=== PATIENT | female | born 1995 | race Caucasian/White ===

== ENCOUNTER 2024-04-28 20:48 | Emergency (ER) | payer OTHER, SELFPAY ==
[2024-04-28 20:59] VITALS: BP 138/85; PULSE 84; RESP 18; TEMP 36.9; O2SAT 98; BMI 20.8
--- NOTE | 2024-04-28 21:17 | MHC.EDTECH ---
Patient brought into triage area,Sars/Flu/Rsv and Strep swabs obtained and sent to lab.
[2024-04-28 21:33] LABS: IDNOW Serial# 6674DD1D; Strep A Nucleic Acid Positive (Negative)
[2024-04-28 22:02] LABS: Influenza A PCR NEGATIVE (Negative); Influenza B PCR NEGATIVE (Negative); Resp Syncy Virus RNA Qual PCR NEGATIVE (Negative); SARS COV2 PCR INHOUSE NEGATIVE (Negative)
--- NOTE | 2024-04-28 22:14 | ED_ITS ---
HPI - General Adult General Chief complaint: Upper Respiratory Symptoms Stated complaint: ?Strep Time Seen by Provider: 04/28/24 22:13 Source: patient Mode of arrival: ambulatory Limitations: no limitations History of Present Illness ED Provider: Felice LAZARO HPI narrative: This is a 28-year-old female presenting with sore throat for the past few days, reports sore throat is worse with swallowing and eating. She reports the pain seems to be worsening. She also reports fatigue, malaise, myalgias. She denies sick contacts. Denies fevers, chills, headache, vision changes, dizziness, weakness, nausea, vomiting, abdominal pain, chest pain, shortness of breath. Related Data Previous Rx's ?Medication ?Instructions ?Recorded amoxicillin 875 mg-potassium 1 tab PO BID 10 days #20 tabs 04/28/24 clavulanate 125 mg tablet prednisone 20 mg tablet 40 mg (2 x 20 mg) PO DAILY 5 days 04/28/24 #10 tabs Allergies Allergy/AdvReac Type Severity Reaction Status Date / Time latex AdvReac Rash Verified 04/28/24 21:00 Review of Systems Review of Systems: Yes all other systems are reviewed and are negative [facility] Past Medical History Attestation statement: The following information was validated with the patient. Source: old records reviewed and nursing notes reviewed Social History Social History Advance Directives: No Advance Directives Information Provided: No Physical Exam ED Vital Signs: Vital Signs - 24 hr 04/28/24 20:59 Temperature 98.4 F Pulse Rate 84 Respiratory Rate 18 Blood Pressure 138/85 Pulse Oximetry 98 Oxygen Delivery Method Room Air BMI result Body Mass Index 20.8 vss Appearance: Alert.? Oriented X3.? No acute distress.? Head: Normocephalic, atraumatic, no step-offs or deformities Eyes: Pupils equal, round and reactive to light.? ENT: bilateral tonsillar hypertrophy right greater than left with exudates again right greater than left. Uvula midline. Speaking in full sentences controlling secretions well. Neck: Normal inspection.? Neck supple.? CVS: Normal heart rate and rhythm.? Pulses normal.? Respiratory: No respiratory distress.? Breath sounds normal.? Abdomen: Soft and nontender.? Skin: Skin warm and dry.? Normal skin color.? Normal skin turgor.? Extremities: No lower extremity edema.? No calf ttp. 5/5 strength to bilateral upper and lower extremities Back: No midline tenderness, no C-spine tenderness, full range of motion, no CVA tenderness bilaterally Neuro: Oriented X 3.? No motor deficit.? No sensory deficit. CN 2-12 intact Course Reevaluation(s) Reevaluation #1: Strep positive patient to be discharged on Augmentin and prednisone Educated patient on diagnosis and treatment plan, answered all question, patient verbalizes understanding. At this time patient will be discharged home, advised to return with new or worsening symptoms. Educated on worrisome signs and symptoms and when to return. At this time I feel comfortable discharge home. Time: 22:17 Medical Decision Making Medical Decision Making [facility] Narrative: 1014 This is a 28 year old female presenting with sore throat for the past few days. On exam bilateral tonsillar hypertrophy right greater than left with exudates again right greater than left. Uvula midline. Speaking in full sentences controlling secretions well. History and physical exam concerning for strep throat versus viral illness versus mononucleosis. Unlikely retropharyngeal abscess peritonsillar abscess, epiglottitis, acute threat to airway. No signs of hypoxia Plan strep test. Differential Diagnosis Differential Diagnoses: The differential diagnosis associated with the presentation includes History and physical exam concerning for strep throat versus viral illness versus mononucleosis. Unlikely retropharyngeal abscess peritonsillar abscess, epiglottitis, acute threat to airway. No signs of hypoxia Admission/Observation Consideration of admission/observation: Escalation of care including admission/observation considered Unlikely Lab Data [facility] Lab Attestation statement: I reviewed the patient's lab results. Labs: Lab Results 04/28/24 Range/Units 21:16 S. pyogenes GrpA WAYLON Positive A (Negative) Prescription Management I considered prescription management with: Antibiotic Critical Care Time Critical Care Time Critical Care Time: No Discharge Plan Discharge Clinical Impression: Pharyngitis Patient Disposition: Home, Self-Care Instructions: Pharyngitis (ED) Additional Instructions: Take your medications as prescribed. If you were prescribed antibiotics today, it is important that you take your medication to their entirety, do not skip any doses, do not finish them early. Follow-up with your primary care provider this week. Return to the emergency department with new or worsening symptoms. Such as fevers, chills, chest pain, shortness of breath, nausea, vomiting, dizziness, headache, vision changes, lethargy In case of emergency call 911 Saltwater gargles are encouraged 2 to 3 times a day. Prescriptions: New prednisone 20 mg tablet 40 mg PO DAILY 5 Days Qty: 10 0RF amoxicillin-pot clavulanate 875-125 mg tablet 1 tab PO BID 10 Days Qty: 20 0RF Referrals: Physician,Unknown J [Primary Care Provider] - 2 days Print Language: Italian
[2024-04-28 22:23] VITALS: BP 138/85; PULSE 84; RESP 18; TEMP 36.9; O2SAT 98
== END 2024-04-28 22:26 | disposition home or self-care (01) ==
PROVIDERS: Emergency Provider Emergency Medicine
DX: J02.9 Acute pharyngitis, unspecified (principal); Z03.818 Encounter for observation for suspected exposure to other biological agents ruled out
CPT/HCPCS: 0241U; 87651; 99283; 99284

== ENCOUNTER 2025-06-03 15:30 | Emergency (ER) | payer OTHER, SELFPAY ==
--- OUTSIDE RECORDS SUMMARY | 2018-07-08 13:00 | XMS_ITS | Continuity of Care Document ---
Author Organization [address] [place] [address] Phone Care Team Providers Care Diving Judge Name Role Phone Radha Sanchez Unavailable Unavailable Procedures Procedure Date BLOCK Advance Directives Directive Yes / No Effective Date File Name No Information Encounters Encounter Description Practice Location Reason(s) For Visit Diagnoses Date Provider Providers Copied on Encounter [address] [place], [id number], tel:[phone] [facility] No Information [address] Bobby Garcia. [address] [facility] [place], [address], [place]. tel:[phone] Referring Provider: Radha Rosales, [address] [place] [address] [place], [facility]. tel:[phone] Family History Family Member Type Diagnosis Age At Onset No Information Payers Payer name Insurance type Covered green party ID Authoriza tion(s) No Information Social History Type Description Quantity Date Captured Comments Sex Female Smoking Status No Information Chief Complaint And Reason For Visit No Information Reason For Referral Reason For Referral No Information History Of Present Illness Encounter Date Complaint History Of Prese nt Illness No Information Functional Status Date Functional Assessmen t No Information Instructions Date Instruction Additional Infor mation No Information Assessments Type Assessment Date No Information Patient Care Teams Name Effective Dates (start - stop) Status Members No Information
[2025-06-03 15:42] VITALS: BP 146/64; PULSE 60; RESP 20; TEMP 36.8; O2SAT 98; BMI 25.6
--- NOTE | 2025-06-03 15:43 | ED_ITS ---
HPI - General Adult General Chief complaint: Upper Respiratory Symptoms Stated complaint: body aches, neck gland swollen Time Seen by Provider: 06/03/25 16:02 Source: patient Mode of arrival: ambulatory Limitations: no limitations History of Present Illness ED Provider: Gabriella Raphael PA-C HPI narrative: Patient is a 29 year old assigned female at with a history of chronically swollen cervical lymph nodes presenting to the emergency department today with feeling generally unwell, headache, worsening left sided cervical lymph node swelling effecting her swallowing, and increased bruising with fatigue. Patient states that over the last 4 days she has had a headache, worsening left sided swelling of the cervical lymph nodes, body aches, fatigue, and increased bruising. Patient denies any other complaints at this time. Related Data Previous Rx's ?Medication ?Instructions ?Recorded amoxicillin 875 mg-potassium 1 tab PO BID 10 days #20 tabs 04/28/24 clavulanate 125 mg tablet prednisone 20 mg tablet 40 mg (2 x 20 mg) PO DAILY 5 days 04/28/24 #10 tabs amoxicillin 875 mg tablet 875 mg PO BID 10 days #20 ta bs 06/03/25 Allergies Allergy/AdvReac Type Severity Reaction Status Date / Time latex AdvReac Rash Verified 06/03/25 15:45 Review of Systems 2 Constitutional: Constitutional: Reports as per HPI Eyes: Eyes: Reports as per HPI ENT: Reports as per HPI Cardiovascular: Cardiovascular: Reports as per HPI Respiratory: Respiratory: Reports as per HPI Gastrointestinal: Gastrointestinal: Reports as per HPI Genitourinary: Genitourinary: Reports as per HPI Musculoskeletal: Musculoskeletal: Reports as per HPI Integumentary/Breasts: Skin/Breast: Reports as per HPI Neurologic: Reports as per HPI Psychiatric: Psychiatric: Reports as per HPI Endocrine: Endocrine: Reports as per HPI Hematologic/Lymphatic: Hematologic/Lymphatic: Reports as per HPI Allergic/Immunologic: Allergic/Immunologic: Reports as per HPI [facility] Past Medical History Attestation statement: The following information was validated with the patient. Source: old records reviewed and nursing notes reviewed Social History Social History Smoked in Last 30 Days: No Use of substances other than those prescribed or required for medical reasons: No Advance Directives: No Advance Directives Information Provided: Yes Physical Exam ED Vital Signs: Vital Signs - 24 hr 06/03/25 15:42 Temperature 98.2 F Pulse Rate 60 Respiratory Rate 20 Blood Pressure 146/64 H Pulse Oximetry 98 Oxygen Delivery Method Room Air BMI result Body Mass Index 25.6 Const General: cooperative, no acute distress, alert and awake Nutritional Appearance: well nourished Orientation/consciousness: patient oriented x3 HENMT Head: Yes normal to inspection and Yes atraumatic Ears: hearing grossly normal bilaterally and external ears normal General nose exam: Normal external nose present, no nasal discharge noted and no epistaxis Face and sinus: Yes normal facial exam, No abrasion and No laceration Mouth: Normal oral and palatal mucosa present, no drooling and no muffled voice Throat: Yes abnormal tonsil (bilateral erythema and exudates) Eyes General: appearance normal, both eyes and all related structures Periorbital: periorbital findings normal Eyelids: Yes eyelids normal Conjunctivae: conjunctivae normal Pupils: Equal, round and reactive pupils present EOM: EOMs intact bilaterally Neck Other: bilateral anterior cervical lymphadenopathy - left worse than right Neck: Yes normal visual inspection and Yes full ROM Resp Effort & Inspection: normal respiratory effort and able to speak in complete sentences Neuro General: patient oriented x3, moves all extremities and CN's II-XI intact bilaterally Cranial nerves: Yes Equal, round and reactive pupils present Cognition (Neuro): normal cognition Extrem General: Yes normal to inspection, Yes full ROM and Yes capillary refill normal Psych Appearance: grossly normal Mental Status: mental status grossly normal Affect: normal affect Attitude: cooperative Thought process: Normal thought process present Thought content: Normal thought content present Insight: Good insight present (Psych) Course Course Course Narrative: This is a rapid medical exam performed by Yaz Fink NP: Additional HPI, ROS, PE not included below will be deferred to primary provider. Patient is a 29-year-old female presenting to the ED with complaint of headache for the past 4 days, swelling to left side of neck, body aches. Reports difficulty swallowing due to swelling, managing secretions without difficulty in triage. Plan: strep and viral swabs Medical Decision Making Medical Decision Making MDM Narrative: Patient is a 29 year old assigned female at with a history of chronically swollen cervical lymph nodes presenting to the emergency department today with feeling generally unwell, headache, worsening left sided cervical lymph node swelling effecting her swallowing, and increased bruising with fatigue. Patient's physical exam was as noted in the physical exam portion of this note. Patient's blood work was unremarkable. Patient's strep test was positive. I explained my physical exam findings as well as all test results to the patient. I answered all questions asked by the patient. I stressed the importance of the patient taking her medication as directed (either prescribed or as the over the counter packaging recommends). I stressed the importance of the patient following up with her primary care provider. I stressed the importance of the patient returning to the emergency department immediately if her symptoms were to worsen or if she were to develop any dizziness, shortness of breath, difficulty breathing, chest pain, blurry vision, loss of vision, nausea, vomiting, abdominal pain, fever, chills, back pain, or any other complaints. Patient verbalized agreement and understanding with this treatment plan and discharge. Differential Diagnosis Differential Diagnoses: The differential diagnosis associated with the presentation includes Strep pharyngitis Arthur Influenza Anemia Fatigue Admission/Observation Consideration of admission/observation: Escalation of care including admission/observation considered Patient would have been admitted to the hospital had her work up had any findings where hospital admission was appropriate and her clinical presentation warranted hospital admission. Lab Data [facility] Lab Attestation statement: I reviewed the patient's lab results. My interpretation of these results are in the [facility] Rationale portion of this note. 06/03/25 17:10 06/03/25 17:10 Labs: Lab Results 06/03/25 06/03/25 06/03/25 Range/Units 15:56 15:57 17:10 WBC 9.8 (4.8-10.8) X10*3/uL RBC 3.99 L (4.20-5.50) X10*6/uL Hgb 12.0 (12.0-16.0) g/dl Hct 35.4 L (37.0-47.0) % MCV 88.7 (80.0-98.0) fL MCH 30.1 (27.0-33.0) pg MCHC 33.9 (31.0-35.0) g/dl RDW 12.6 (11.0-16.0) % Plt Count 254 (160-400) X10*3/uL MPV 10.7 (9.4-12.3) fL Immature Gran % (Auto) 0.3 (0.0-0.4) % Neut % (Auto) 74.7 H (45-73) % Lymph % (Auto) 17.0 L (20-40) % Arthur % (Auto) 6.8 (2-11) % Eos % (Auto) 0.6 (0-4) % Baso % (Auto) 0.6 (0-2) % Lymph # (Auto) 1.7 (1.2-4.9) X10*3/uL Arthur # (Auto) 0.7 (0.1-1.2) X10*3/uL Eos # (Auto) 0.1 (0.0-0.4) X10*3/uL Baso # (Auto) 0.1 (0.0-0.2) X10*3/uL Abs Immat Gran (auto) 0.03 (0.00-0.03) X10*3/uL Absolute Neuts (auto) 7.3 (2.0-8.3) x10*3/uL Absolute Nucleated RBC 0.000 (0.0-0.012) X10*3/uL Nucleated RBC % (auto) 0.0 (0.0-0.2) /100WBC Sodium 139 (135-145) mmol/L Potassium 3.8 (3.3-5.1) mmol/L Chloride 106 (96-108) mmol/L Carbon Dioxide 26 (22-29) mmol/L Anion Gap 11 L (12-20) BUN 10 (9-16) mg/dL Creatinine 0.76 (0.5-1.4) mg/dL Estim Creat Clear Calc 108.9 Estimated GFR > 60 Random Glucose 81 (60-115) mg/dL Calcium 9.2 (8.4-10.2) mg/dL Total Bilirubin 0.5 (0.0-1.0) mg/dL AST 22 (5-31) U/L ALT 13 (0-31) U/L Alkaline Phosphatase 42 (39-117) U/L C-Reactive Protein 0.17 (< or = 0.50) mg/dL Total Protein 6.9 (6.5-8.0) g/dL Albumin 4.3 (3.5-5.0) g/dL Beta HCG, Quant < 2 mIU/mL COVID-19 (SARAHY) Negative (Negative) COVID-19 Clin Com See Note Monoscreen Negative (Negative) Influenza Type A (WAYLON) Negative (Negative) Influenza Type B (WAYLON) Negative (Negative) Influenza A & B Note See Note S. pyogenes GrpA WAYLON Positive A (Negative) Prescription Management I considered prescription management with: Antibiotic (patient prescribed an antibiotic for strep pharyngitis) Discharge Plan Discharge Clinical Impression: Strep pharyngitis Patient Disposition: Home, Self-Care Instructions: Strep Throat (DC) Additional Instructions: Your strep test was positive. The rest of your labs are unremarkable. Throw away your toothbrush to avoid re-infecting yourself. IF you are prescribed home medications and/or you are taking over the counter medications at home - it is very important you continue to do so as prescribed / directed unless told otherwise. Follow up with your primary care provider. Return to the emergency department immediately if your symptoms worsen or if you develop any numbness, tingling, dizziness, shortness of breath, difficulty breathing, chest pain, blurry vision, loss of vision, nausea, vomiting, abdominal pain, fever, chills, back pain, or any other complaints. Please see the information below about our Patient Portal. If you are not yet enrolled in the [facility] Patient Portal, you will receive an enrollment email invitation following your visit to any [facility] setting. You may also self-enroll in the Patient Portal by visiting our website: [email or web address] The following information is required to access the Patient Portal: - Your [facility] Medical Record Number - Your personal home email address (must match what is in your electronic medical record, Registration staff can assist with this) - Name - Date of Capabilities of the Patient Portal: - Message some providers - View upcoming appointments - Access your health summary, medical history, and visit history - View current conditions and allergies - View procedure and lab results - View your medications, including guidelines, side effects, and precautions - Complete pre-appointment questionnaires requested by your provider - Ready summary reports of your office visits and procedures To access the Patient Portal Mobile [employer], follow these directions: - Search [employer] in the [employer]nell Store or [employer] Store - Download the Ronnell - Search for [facility] - Enter your login/password Prescriptions: New amoxicillin 875 mg tablet 875 mg PO BID 10 Days Qty: 20 0RF No Action prednisone 20 mg tablet 40 mg PO DAILY 5 Days Qty: 10 0RF amoxicillin-pot clavulanate 875-125 mg tablet 1 tab PO BID 10 Days Qty: 20 0RF Referrals: Group,[facility] [Primary Care Provider, Primary Care] Stand Alone Forms: Work/School Release Print Language: [place]
[2025-06-03 16:16] LABS: COVID-19 Test Negative (Negative); IDNOW Serial# 08D9AD1C
[2025-06-03 16:18] LABS: IDNOW Serial# 58CA691E; Strep A Nucleic Acid Positive (Negative)
[2025-06-03 16:21] LABS: IDNOW Serial# 6674DD1D; Influenza B2 Negative (Negative)
--- OUTSIDE RECORDS SUMMARY | 2025-06-03 16:43 | XMS_ITS | Clinical Summary ---
Author Organization [facility] Address [address] [place] [address] Phone Care Team Providers Care Machine Tool Technician Instructor Name Role Phone Miranda Heller MD Primary Care Provider [phone] Allergies Active Allergy Reactions Criticality Noted Date Comments Animal Dander 01/18/2022 Other reaction(s): Runny Nose/Rhinitis Congestions. Latex 12/22/2007 Contact reaction causes hives Tetrahydrozoline-Zinc 08/25/2024 Runny Nose/Rhinitis Other Runny nose 01/18/2022 Cats Congestions. Medications norelgestromin-e thinyl estradiol (ORTHO EVRA) 150-35 mcg/[address] 1 patch on the skin 1 (one) time per week. Apply 1 patch each week for 3 weeks, then remove for 1 week. 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 She agreed. Rx sent. Allergic contact dermatitis due to other agents 09/16/2019 Anxiety and depression 08/14/2016 Overview (08/25/2024): Reports anxiety at IP, denies depression- N referral list given. Declines meds at this time. Feels stable Denies SI/HI 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/11/2012 Overview (08/25/2024): Followed by usn Eczema 11/11/2012 Acne 08/08/2007 Resolved Problems Problem Noted Date Diagnosed Date Resolved Date UTI symptoms 07/18/2022 10/23/2024 Overview (08/25/2024): 07/17/22 Reports crampy LBP at 36 weeks, u/a at [facility] +blood and leuk est, urine culture pending, rx for Keflex 500mg 4x daily x 7 days sent to pharmacy 07/19/22 Urine culture neg - will advise to stop abx macrosomia during 07/17/2022 10/23/2024 Overview (08/25/2024): EFW 94% at 32+6 08/07: 4088gm 93rd percentile Low back pain during pregnan cy in third trimester 07/13/2022 10/23/2024 Overview (08/25/2024): Last Assessment & Plan: Reassured this sounds like usual discomfort of and she can try stretching, gentle heat. headache in third trimester 07/13/2022 10/23/2024 Overview (08/25/2024): Last Assessment & Plan: I counseled An that her JOE may be tension or migrine related. No evidence of pre-eclampsia. She was encouraged to use Phenergan and nap this afternoon. If JOE not resolved, to call and be seen on [facility] this evening. She agreed. Round ligament pain 07/13/2022 10/23/19 Overview (08/25/2024): Last Assessment & Plan: Explained this sounds like round ligament pain and is not worrisome, but may occur from time to time. As long as it does not persist, no need for further evaluation. Encounters Date Type Department Care Team Description 06/03/2025 Telephone Adult Medicine [place] - [place] [address] [place] [phone] Miranda Heller MD 05/13/2025 10:00 AM EDT Office Visit Obstetrics and Gynecology - [place] [id number] [place] [phone] Arlyn Alfaro CNM Encounter for surveillance of transdermal patch hormonal contraceptive device (Primary Dx); control counseling from Last 3 Months Immunizations Name Administration Dates Next Due DTP 06/14/1995, 4,03/14/1994,01/12 DTaP (Infanrix) 6wks to less than 7yo 12/07/1997 CPeX-NJB-HFL (Pentacel) 2mo to less than 5yo 06/14/1995,05/14/1994,03/14/1994,01/12 HPV, Quadrivalent 03/12/2008,10/16/2007,08/08/20 07 Hepatitis B Pediatric (Enger ix B; Recombivax HB) to less than 20 yo 08/14/1994,01/12/1994,1993 IPV Inactivated polio (Ipol) 6wks and older 12/07/1997 Influenza Quadravalent, MDCK , 0.5ml, preservative free (Flucelvax) 6mo and older 06/20/2022 Influenza Quadravalent, MDCK , 0.5ml, with preservative (Flucelvax) 6mo and older 12/22/2023 Influenza trivalent, 0.5mL, preservative free (Fluarix; FluLaval; Fluzone) ages 6mo and older (Afluria) 3 years and older 07/02/2019,06/10/2009 MMR, measles mumps and rubel la Live (Priorix; M-M-R II) 12mo and older 12/22/1998,03/14/1995 MMRV, measles mumps rubella and varicella live (Proquad) 4yo to less than 7yo 12/22/1998,03/14/1995 Meningococcal MCV4P 03/12/2008 OPV 06/14/1995, 4,03/14/1994,01/12 PPD Test 02/14/2001,12/12/1994 Pfizer SARS-CoV-2 COVID-19, mRNA, LNP-S, preservative free 07/05/2021,01/03/2021,12/13/2020 Tdap Tetanus diptheria acell ular pertussis (Boostrix; Adacel) 7yo and older 05/23/2022,03/19/2018,08/08/2007 Varicella live (Varivax) 12m o and older 05/04/2009,03/14/1999 Surgical History Surgery Date Site/Laterality Comments TYMPANOSTOMY TUBE PLACEMENT , PROCEDURE: HISTORICAL PE TUBES OTHER SURGICAL HISTORY 02/2007 PROCEDURE: AR PRQ SKEL FIXJ PHLNGL SHFT FX PROX/MIDDLE PX/F/T; COMMENT: two pins placed right pinky finger OTHER SURGICAL HISTORY 07/08/2015 Left PROCEDURE: HISTORY OTHER; COMMENT: removal of breast fibroadenoma WISDOM TOOTH EXTRACTION 2010 PROCEDURE: HISTORICAL WISDOM TEETH EXTRACTION; COMMENT: All 4 removed OTHER SURGICAL HISTORY 2017 PROCEDURE: HISTORICAL D&C SECTION 08/11/2022 PROCEDURE: HISTORICAL DELIVERY Medical History Medical History Date Comments Urinary tract infection, sit e not specified ,,,, DX:Urinary tract infection, site not specified Acute suppurative otitis med ia without spontaneous rupture of eardrum x2,,x2,,,,,, DX:Acute suppurative otitis media without spontaneous rupture of eardrum Expressive language disorder 05/1995 DX: Expressive language disorder Dog bite(E906.0) 04/1996 DX:Dog bite(E90 6.0); COMMENT: face Fracture of finger DX:Fracture o f finger; COMMENT: multiple fractures and surgery Seborrheic dermatitis 02/2009 DX:Seborrh eic dermatitis; COMMENT: seen by Peter vaca, resolved 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/11/2012 DX:Fibroadenoma Eczema 11/11/2012 DX:Eczema HSV-1 infection DX:HSV-1 infecti on 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; COMMENT: flaky patches on eyelids Heart murmur DX:Heart murmur; COMMENT: Born with this; unsure if still present 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; COMMENT: 12/12/15 S/P D&C Family History Medical History Relation Name Comments Other: tested postiive for BRCA Father does not know Breast cancer Half-Sister paternal 1/2 sister triple negative Other: tested positive for BRACA gene Half-Sister paternal 1/2 sister 1/2 sister diagnosed with stage 2 breast CA, had chemo Diabetes Maternal Grandmother Hypertension Maternal Grandmother Nephrolithiasis Mother Other: coconut allergy Mother Other: mitral valve prolapse Mother Breast cancer Other maternal great aunt Asthma Paternal Grandmother breast cancer Cervical cancer Neg Hx Colon cancer Neg Hx Ovarian cancer Neg Hx Prostate cancer Neg Hx Uterine cancer Neg Hx Relation Name Status Comments Father does not know Alive 05/18/1969 Half-Sister paternal 1/2 sister Alive Maternal Grandfather Maternal Grandmother Alive Mother Alive 10/11/1974 Other maternal great aunt Alive Paternal Grandfather Paternal Grandmother Social History Tobacco Use Types Packs/Day Years Used Date Smoking Tobacco: Former Cigarettes Q uit: 09/30/2020 Smokeless Tobacco: Never Alcohol Use Standard Drinks/Week Comments Yes 0 (1 standard drink = 0.6 oz pur e alcohol) Comments No Sex and Gender Information Value Date Recorded Sex Assigned at Not on file Legal Sex Female 3:20 AM EST Gender Identity Not on file Sexual Orientation Not on file Occupation Industry Job Start Date Job End Date [employer]ER Not on file Not on file Not on file Obstetrics History * This document contains information received from the source organization and may not represent a complete record from that organization. Para Term AB IAB SAB Ectopic Multiple Livin g Live Births 2 1 1 1 1 Date Outcome GA Total Labor Labor/2nd/3rd Weight Sex Type Anes PTL Yaritza A1 A5 Name Clin 2015 2021 Term 39w 5d 4082 g (144 oz) M CS-LT ranv Spinal N Livin g Dr. Crocker Delivery Location:[facility] Comments:Arrest of dil ation. 8/9 Last Filed Vital Signs Vital Sign Reading Time Taken Comments Blood Pressure 106/84 05/13/2025 9:59 AM EDT Pulse 58 05/13/2025 9:59 AM EDT Temperature - - Respiratory Rate 14 05/13/2025 9:59 AM EDT Oxygen Saturation - - Inhaled Oxygen Concentration - - Weight 72.3 kg (159 lb 6.4 oz) 05/13/2025 9:59 A M EDT Height 165.1 cm (5' 5 ) 02/12/2025 11:24 AM EDT Body Mass Index 26.53 02/12/2025 11:24 AM EDT Plan of Treatment Upcoming Encounters Date Type Department Care Team (Late st Contact Info) Description 06/17/2025 10:30 AM EDT Procedure visit Obstetrics and Gynecology - [address] [phone] Arlyn Alfaro CNM [address] [place] [address] 06/24/2025 9:30 AM EDT Office Visit Adult Medicine [place] - [address] [phone] Miranda Heller MD [address] [place] [address] Health Maintenance Due Date Last Done Comments Pneumococcal Vaccine: Pediatrics (0 to 5 Years) and At-Risk Patients (6 to 49 Years) (1 of 2 - PCV) 2012 Social Influencers of Health Screening 09/02/2022 Depression Screening 09/30/2024 02/14/2024 COVID-19 Vaccine ( season) 2025 07/05/2021, 01/03/2021, 12/13/2020 Influenza Vaccine (#1) 2025 , 06/20/2022, 07/02/2019, Additional history exists Cervical Cancer Screening: HPV 02/01/2027 02/01/2022 Cholesterol Screening (Lipid Panel) 08/30/2028 08/30/2023, 08/30/2023 DTaP,Tdap,and Td Vaccines (9 - Td or Tdap) 05/23/2032 05/23/2022, 03/19/2018, 08/08/2007, Additional history exists Hepatitis B Vaccines Completed 08/14/1994, 01/12/1994, 1993 HIB Vaccines Completed 06/14/1995, 04/30, 03/14/1994, Additional history exists IPV Vaccines Completed 12/07/1997, 05/31, 06/14/1995, Additional history exists MMR Vaccines Completed 12/22/1998, 11/29, 03/14/1995, Additional history exists HPV Vaccines Completed 03/12/2008, 09/30, 08/08/2007 Meningococcal ACWY Vaccine Aged Out 03/12/2008 N o longer eligible based on patient's age to complete this topic Varicella Vaccines Completed 05/04/2009, 0 03/14/1999, 12/22/1998, Additional history exists HIV Screening Completed 01/23/2022 Hepatitis C Screening Completed 01/23/2022 Hepatitis A Vaccines Aged Out No long er eligible based on patient's age to complete this topic Meningococcal B Vaccine Aged Out No l onger eligible based on patient's age to complete this topic RSV Immunization Patients Under 20 months Aged Out No longer eligible based on patient's age to complete this topic Procedures Procedure Name Priority Date/Time Associated Diagnosis Comments DEPRESSION SCREENING Routine 02/14/2024 LIPID PANEL Routine 08/30/2023 HPV Routine 02/01/2022 HEPATITIS C SCREENING Routine 01/23/2022 HIV SCREENING Routine 01/23/2022 from Last 3 Months or Most Recently Relevant to Health Maintenance Results * Depression Screening (02/14/2024) Depression Screening abstracted us Historical Provider HEALTH MAINTENANCE Final Result * Lipid panel (08/30/2023) Triglycerides 0 mg/dL Comment:no interpretation Cholesterol 0 mg/dL Comment:no interpretation HDL 0 mg/dL Comment:no interpretation LDL Cholesterol 0 mg/dL Comment:no interpretation Blood Venous blood specimen / Unknown Result [facility] Provider LAB BLOOD ORDERABLES Val l Result * Cervical Cancer Screening: HPV (02/01/2022) Pathologist [facility] Cervical Cancer Screening: HPV abstracted, no interpretation Result [facility] Provider HEALTH MAINTENANCE Final Result * HIV Screening (01/23/2022) [facility] HIV Screening abstracted [facility] Provider HEALTH MAINTENANCE Final Result * Hepatitis C Screening (01/23/2022) [facility] Hepatitis C Screening abstracted [facility] Provider HEALTH MAINTENANCE Final Result from Last 3 Months or Most Recently Relevant to Health Maintenance Insurance [facility] Care Teams Machine Tool Technician Instructor Relationship Specialty Start Date End Date Miranda Heller MD [address] [place] [address] PCP - General 02/20/24
--- OUTSIDE RECORDS SUMMARY | 2025-06-03 16:43 | XMS_ITS | Clinical Summary ---
Author Organization [facility] Address [address] [place] [address] Care Team Providers Care Pearl Hand Name Role Phone Vika Monge APRN Primary Care Provider Ailin vailable Allergies Active Allergy Reactions Criticality Noted Date Comments Animal Dander 01/18/2022 Other reaction(s): Runny Nose/Rhinitis Congestions. Latex 12/22/2007 Contact reaction causes hives Tetrahydrozoline-Zn Sulfate Rash,Other (See Comments) Low 01/18/2022 Sneezing, and runny nose Medications No known medications Active Problems Problem Noted Date Diagnosed Date Dermatitis 08/30/2023 EMELIA (generalized anxiety disorder) 08/30/2023 Episode of recurrent major depressive disorder 1 10/31/2022 Family History Medical History Relation Name Comments No Sig Med Hx Father No Sig Med Hx Mother No Sig Med Hx Son Relation Name Status Comments Father Alive Mother Alive Son Alive Social History Tobacco Use Types Packs/Day Years Used Date Smoking Tobacco: Former Cigarettes 0.3 2 0 09/30/2011 - 09/30/2013 Smokeless Tobacco: Never Tobacco Cessation:Counseling Given: Not Answered Alcohol Use Standard Drinks/Week Comments Not Currently 0 (1 standard drink = 0.6 oz pure alcohol) Special occasions; 2 drinks in a sitting Sex and Gender Information Value Date Recorded Sex Assigned at Female 08/27/2023 4:16 PM EST Gender Identity Not on file Sexual Orientation Not on file Job Start Date Occupation Industry Not on file Not on file Not on file Last Filed Vital Signs Vital Sign Reading Time Taken Comments Blood Pressure 127/79 08/30/2023 9:07 AM EST [facility] Pulse 75 08/30/2023 9:07 AM EST Temperature 36.6 C (97.8 F) 08/30/2023 9:07 AM EST Respiratory Rate 16 08/30/2023 9:07 AM EST Oxygen Saturation 98% 08/30/2023 9:07 AM EST Inhaled Oxygen Concentration - - Weight 81.2 kg (179 lb) 08/30/2023 9:07 AM EST Height 167 cm (5' 5.75 ) 08/30/2023 9:07 AM EST Body Mass Index 29.11 08/30/2023 9:07 AM EST Plan of Treatment Health Maintenance Due Date Last Done Comments Hepatitis C Screening 1993 Depression Screening 2005 BMI Counseling 2011 Preventative Health Evaluation 2011 Cervical Cancer Screening (Pap Smear) 2014 COVID-19 Vaccine ( season) 2025 07/05/2021, 01/03/2021, 12/13/2020 Influenza Vaccine (#1) 2025 , 07/02/2019, 06/10/2009 DTap / Tdap / Td (9 - Td or Tdap) 05/23/2032 05/23/2022, 03/19/2018, 08/08/2007, Additional history exists Hepatitis B Vaccines Completed 08/14/1994, 01/12/1994, 1993 Pneumococcal Vaccine Aged Out No long er eligible based on patient's age to complete this topic RSV Ped < 20 months Aged Out No longe r eligible based on patient's age to complete this topic Care Teams Pearl Hand Relationship Specialty Start Date End Date Vika Monge APRN PCP - General Family Medicine 08/27/23
--- OUTSIDE RECORDS SUMMARY | 2025-06-03 16:43 | XMS_ITS | Encounter Summary ---
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 This is the worst headache ever has beenachy and has sore muscles all over , has an enlarged lymph node in her neck and has trouble swallowing lot of stress Pt has no chest pain or SOB, denies any N/V/D or fever, she has not been ill, no rashes , she has not had any weakness/ numbness , c/o dizziness, denies any change to vision pain is located all over her head no face pain she does not C/O stiff neck, pt has used tylenol and cold meds with no change in her pain Pt advised to go to C or er now she understands and agrees * Meri Paige - 06/03/2025 2:24 PM EDT Patient call requires triage: Symptoms patient is presenting: c/o headache OTC meds not helping, also feels like something is in her throat making it difficult to swallow How long has patient had these symptoms?: headache 3-4 days, lump in throat 1 day For ALL patients calling to schedule any appointment (routine, sick visit, follow up, consult, etc.) in the outpatient setting please ask the following questions: Do you have fever of higher than 101, sore throat with difficulty swallowing or severe shortness ofbreath? no If YES to any of these above symptoms, send a message to triage and do not book. Red dot. If no, an audio or video visit should be booked. Have you had close contact with someone with Coronavirus in the last 14 days? no Have you traveled abroad? no Have you traveled recently to another state outside of [place], [place], [place], [place], [place], [place], [place]? no o If yes, did you quarantine for 14 days or have a negative covid test? no If yes to any of the above, patient is not to be scheduled in office until after 14 day quarantine or negative covid test. If pain or injury related was it due to an accident at work or from a motor vehicle accident? If yes, date of accident/Injury: No If yes, gather 3rd green party insurance information Third Green Party Information: not applicable PCP: Miranda Heller MD Payor: [employer] / Plan: [employer] MEDICA[employer] / Product Type: *No Product type* / documented in this encounter Plan of Treatment Upcoming Encounters Date Type Department Care Team (Late st Contact Info) Description 06/17/2025 10:30 AM EDT Procedure visit Obstetrics and Gynecology - [address] [phone] Arlyn Alfaro CNM [address] [place] [address] 06/24/2025 9:30 AM EDT Office Visit Adult Medicine [place] - [address] [phone] Miranda Heller MD [address] [place] [address] documented as of this encounter Visit Diagnoses Not on filedocumented in this encounter Care Teams Mind Reader Relationship Specialty Start Date End Date Miranda Heller MD [address] [place] [address] PCP - General 02/20/24 documented as of this encounter
[2025-06-03 17:19] LABS: MANUAL DIFF FLAG NO
[2025-06-03 17:21] LABS: Hematocrit 35.4 % (37.0-47.0); Hemoglobin 12.0 g/dl (12.0-16.0); Imm Gran Abs Auto 0.03 X10*3/uL (0.00-0.03); Imm Gran Pct Auto 0.3 % (0.0-0.4); Lymphocytes Absolute Auto 1.7 X10*3/uL (1.2-4.9); Mean Corpuscular HGB Conc 33.9 g/dl (31.0-35.0); Mean Corpuscular Hemoglobin 30.1 pg (27.0-33.0); Mean Corpuscular Volume 88.7 fL (80.0-98.0); NRBC Abs Auto 0.000 X10*3/uL (0.0-0.012); NRBC Pct Auto 0.0 /100WBC (0.0-0.2); Platelet Count 254 X10*3/uL (160-400); Red Blood Count 3.99 X10*6/uL (4.20-5.50); White Blood Count 9.8 X10*3/uL (4.8-10.8)
[2025-06-03 17:45] LABS: Alanine Aminotransferase 13 U/L (0-31); Albumin Level 4.3 g/dL (3.5-5.0); Alkaline Phosphatase 42 U/L (39-117); Anion Gap 11 (12-20); Aspartate Amino Transferase 22 U/L (5-31); Blood Urea Nitrogen 10 mg/dL (9-16); Calcium 9.2 mg/dL (8.4-10.2); Carbon Dioxide 26 mmol/L (22-29); Chloride 106 mmol/L (96-108); Creatinine Clr Calc Pharmacy 108.9; Estimated Glomerular Filt Rate > 60; Potassium 3.8 mmol/L (3.3-5.1); Sodium 139 mmol/L (135-145); Total Protein 6.9 g/dL (6.5-8.0)
[2025-06-03 18:04] VITALS: BP 114/69; PULSE 62; RESP 14; TEMP 36.8; O2SAT 99
== END 2025-06-03 18:05 | disposition home or self-care (01) ==
PROVIDERS: Physician Assistant Medical; Registered Nurse Emergency; Emergency Provider Emergency Medicine
DX: J02.0 Streptococcal pharyngitis (principal)
CPT/HCPCS: 36415; 80053; 84702; 85025; 85652; 86140; 86308; 87502; 87635; 87651; 99283; 99284